=== PATIENT | male | born 1970 | race Caucasian/White ===

== ENCOUNTER 2020-06-21 06:31 | Day surgery (SDC) | payer BC ==
[~2020-06-21] VITALS: Ht 182.9 cm; Wt 106.2 kg
[2020-06-21 07:08] VITALS: BP 126/87; PULSE 70; TEMP 97.7
[2020-06-21] MEDS ORDERED: MOTRIN 200200 MG/TAB PO (07:15)
--- NOTE | 2020-06-21 07:16 | NUR ---
TO RM AT [phone]- CALL LIGHT IN REACH WILL CALL FOR RIDE HOME
[2020-06-21 08:15] VITALS: BP 118/83; PULSE 63; TEMP 97.6
--- NOTE | 2020-06-21 08:15 | NUR ---
TO BAY 3 PER CART FROM ENDOSCOPY. ALERT ORIENTED X3, TALKING WITH STAFF. AMBULATED TO RECLINER WITH ASSIST AND TOLERATED WELL. RECEIVED TOAST AND WATER.
[2020-06-21 08:30] VITALS: BP 136/93; PULSE 62
[2020-06-21 08:45] VITALS: BP 124/92; PULSE 66
--- NOTE | 2020-06-21 08:45 | NUR ---
ATE 100% AND TOLERATED WELL. DR PAULINO INTO TALK WITH PATIENT
--- NOTE | 2020-06-21 09:00 | NUR ---
AMBULTAED TO BATHROOM AND TOLERATED WELL.
--- NOTE | 2020-06-21 09:22 | NUR ---
RECEIVED DISCHARGE INSTRUCTIONS AND VERBALIZED UNDERSTANDING. DISCONTINUED IV AND INT
--- NOTE | 2020-06-21 09:25 | NUR ---
DISCHARGED PER WC BY NURSING STAFF TO PRIVATE CAR IN CARE OF HIS ANN.
== END 2020-06-21 10:06 | disposition home or self-care (01) ==
LOC: SDCO 06:31
DX: Z12.11 Encounter for screening for malignant neoplasm of colon (principal)
CPT/HCPCS: J2704; J7120